=== PATIENT | female | born 1985 | race Two or more races ===

== ENCOUNTER 2018-05-13 21:32 | Emergency (ER) | payer MEDICAID ==
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
== END 2018-05-13 23:00 | disposition home or self-care (01) ==
LOC: ER 21:32
DX: S00.83XA Contusion of other part of head, initial encounter (principal); S00.212A Abrasion of left eyelid and periocular area, initial encounter; S00.81XA Abrasion of other part of head, initial encounter; Z98.890 Other specified postprocedural states; Y08.89XA Assault by other specified means, initial encounter; Y93.89 Activity, other specified; Y92.89 Other specified places as the place of occurrence of the external cause; Y99.8 Other external cause status
CPT/HCPCS: Z7502